=== PATIENT | female | born 1955 | race Caucasian/White ===

== ENCOUNTER → 2022-05-11 11:54 | Outpatient (CLI) | payer MEDICARE, SELFPAY ==
--- NOTE | ~2022-05-11 | MM_ITS ---
EXAMINATION: MM screening [facility] BI w reese HISTORY: Screening TECHNIQUE: Craniocaudal and mediolateral oblique 3-D tomosynthesis images were obtained and synthetic 2-D images were generated. CAD analysis was submitted and interpreted. COMPARISON: Comparison to multiple prior studies sequentially, with oldest reviewed study dated 03/2014. BREAST PARENCHYMAL COMPOSITION: There are scattered areas of fibroglandular density. FINDINGS: There is no evidence of suspicious mass, calcification, or architectural distortion to sugg est malignancy in either breast. There has been no suspicious interval change. IMPRESSION: 1. No mammographic evidence of malignancy. 2. Recommend routine screening mammography in one year. BI-RADS Category 1: Negative Reviewed, dictated and finalized at location A.
== END ==
PROVIDERS: PCP Family Medicine Adolescent Medicine; Visit Provider Family Medicine Adolescent Medicine
DX: Z12.31 Encounter for screening mammogram for malignant neoplasm of breast (principal)
CPT/HCPCS: 77063; 77067

== ENCOUNTER → 2023-05-24 09:45 | Outpatient (CLI) | payer MEDICARE, SELFPAY ==
--- NOTE | ~2023-05-24 | CT_ITS ---
EXAMINATION: CT lung screening DATE: 05/24/2023 09:58 INDICATION: Personal history of nicotine dependence, current smoker with 40 pack year history TECHNIQUE: Computed tomography (CT) of the chest was performed without intravenous contrast. The dose -length product (DLP) was 82.51 mGy-cm. Automated exposure control and iterative reconstruction techn ique were employed. COMPARISON: None FINDINGS: There is moderate emphysema. Calcified pulmonary nodules are consistent with old granulomat ous disease. The heart size is normal. There is a 13 mm nodule at the anteromedial aspect of the righ t upper lobe (image 74). A right lower paratracheal lymph node is upper limits of normal in size. Artemio cified coronary artery atherosclerosis is noted. Punctate calcifications in an otherwise normal splee n likely represent healed granulomatous disease. Schmorl's node is noted in the superior endplate of T10. IMPRESSION: 1. Lung-RADS category 4A: Suspicious. Findings for which additional diagnostic testing is recommended . Recommend three-month low-dose CT or PET/CT. Reviewed, dictated and finalized at location L. IMPRESSION: 1. Lung-RADS category 4A: Suspicious. Findings for which additional diagnostic testing is recommended. Recommend three-month low-dose CT or PET/CT.
== END ==
PROVIDERS: PCP Nurse Practitioner Family; Visit Provider Nurse Practitioner Family
DX: Z12.2 Encounter for screening for malignant neoplasm of respiratory organs (principal); Z87.891 Personal history of nicotine dependence; R92.8 Other abnormal and inconclusive findings on diagnostic imaging of breast
CPT/HCPCS: 71271

== ENCOUNTER 2023-07-05 00:21 | Day surgery (SDC) | payer MEDICARE, SELFPAY ==
[2023-06-23 11:11] VITALS: BMI 25.8
[2023-07-05 06:14] VITALS: BP 146/78; PULSE 79; RESP 16; TEMP 36.4; O2SAT 97; BMI 26.9
[2023-07-05] MEDS: LACTATED RINGERS 1,000 ML 150 ML IV CONT (06:32)
--- NOTE | 2023-07-05 07:16 | WPDANESEPPF ---
Anes - Initial Pre Proc Eval Procedure: Operation Date: 07/05/23 07:30 Proposed Procedures p Colonoscopy - Santy Howard MD Date/Time: 07/05/23 07:16 Surgeon: Santy Howard MD Pre Op Diagnosis: hx of colon polyps Patient Data Age: 67 Gender: F Height: 1.63 m Weight: 71.2 kg Last Vital Signs Temp 97.5 F L 07/05/23 06:14 Pulse 79 07/05/23 06:14 Resp 16 07/05/23 06:14 BP 146/78 H 07/05/23 06:14 Pulse Ox 97 07/05/23 06:14 O2 Del Method Room Air 07/05/23 06:14 Allergies Allergy/AdvReac Type Severity Reaction Status Date / Time bupropion AdvReac Intermediate Irritable Verified 07/05/23 06:20 Home Medications Medication Instructions Recorded Confirmed Type calcium carbonate 600 mg calcium 1,200 mg PO DAILY 05/21/22 07/05/23 History (1,500 mg) tablet diclofenac sodium 75 mg See Rx Instructions .Route 05/21/22 07/05/23 Rx tablet,delayed release .COMPLEX PRN pain #60 tabs pseudoephedrine HCl 30 mg tablet 30 mg PO Q4-6H PRN allergies 05/21/22 07/05/23 History (Wal-phed) zinc acetate 50 mg (zinc) capsule 50 mg PO DAILY 05/21/22 07/05/23 History tobramycin 0.3 %-dexamethasone 0.1 1 drp LEFT EYE QID #5 mL 03/29/23 07/05/23 Rx % eye drops,suspension atorvastatin 40 mg tablet 40 mg PO DAILY #90 tabs 03/30/23 07/05/23 Rx levothyroxine 200 mcg tablet 200 mcg PO QAM #90 tabs 03/30/23 07/05/23 Rx varenicline 1 mg tablet (Chantix 1 mg PO BID #180 tabs 05/25/23 07/05/23 Rx Continuing Month Box) Miralax 17 g PO DAILY 06/23/23 07/05/23 History Patient hx anesthesia problems: none Family hx anesthesia problems: none Results Review: All pre-operative results and documents have been reviewed as part of the pre-operative evaluation. [facility] Past Medical History Medical History Abnormal colonoscopy 03/03 polyp Surgical History Surgical History History of hysterectomy with bilateral oophorectomy Family History Family History Father Cerebrovascular accident Hypertension Acute myocardial infarction Heart disease Sibling Hypertension Colon polyp Diabetes mellitus Sibling Carcinoma of colon Mother Breast cancer Social History Social History (Updated 03/30/23 @ 16:37 by Luz Maria Bonilla APRN) Smoking packs per day: 1 Smoking cigarettes per day: 20.0 Years smoked: 40 Smoking pack-years: 40.00 Smoking status: Current every day smoker Tobacco type: cigarettes Second hand tobacco smoke exposure: Yes Alcohol intake: never Substance use: never Substance use type: does not use Living arrangements: with family Occupation/Education: occupation Gender identity (if verbalized by the patient): Female Spiritual care concerns: No Agree to blood products: Yes Anes - Eval Final PreProcedure Day of Procedure 07/05/23 07:16 Patient weight: normal Heart: regular rate and rhythm Lungs: clear to auscultation Airway: Mallampati scale class II Neurological: alert and oriented Last oral intake: >/= 8 hours ASA classification: II Emergent: no Anesthetic plan: proceed Anesthesia type and monitoring: general GIVS and standard monitoring Results Review: All pre-operative results and documents have been reviewed as part of the pre-operative evaluation. Informed Consent: The patient's anesthetic plan and its attendant risks and benefits were discussed with the patient/family/POA. Questions were solicited and answers provided to the satisfaction of the patient/family/POA.
--- NOTE | 2023-07-05 07:25 | PM.HPGS ---
History of Present Illness History of Present Illness Consent: Risks, benefits, and alternatives have been discussed and questions answered. Patient agrees to proceed with procedure. Chief complaint: hx of colon polyps Narrative: Harriet Onofre is a 67 year old female Presents for screening colonoscopy. Patient's current weight appetite and bowel movements are normal. Patient denies abdominal pain. She has had no bleeding. Family history noncontributory. Previous colonoscopy 2014 revealed a benign adenomatous colon polyp. Review of Systems Review of Systems: Review of systems noncontributory. [facility] Past Medical History Medical History Abnormal colonoscopy 03/03 polyp Surgical History Surgical History History of hysterectomy with bilateral oophorectomy Family History Family History Father Cerebrovascular accident Hypertension Acute myocardial infarction Heart disease Sibling Hypertension Colon polyp Diabetes mellitus Sibling Carcinoma of colon Mother Breast cancer Social History Social History (Updated 03/30/23 @ 16:37 by Luz Maria Bonilla APRN) Smoking packs per day: 1 Smoking cigarettes per day: 20.0 Years smoked: 40 Smoking pack-years: 40.00 Smoking status: Current every day smoker Tobacco type: cigarettes Second hand tobacco smoke exposure: Yes Alcohol intake: never Substance use: never Substance use type: does not use Living arrangements: with family Occupation/Education: occupation Gender identity (if verbalized by the patient): Female Spiritual care concerns: No Agree to blood products: Yes Meds Home Medications and Allergies Home Medications Medication Instructions Recorded Confirmed Type calcium carbonate 600 mg calcium 1,200 mg PO DAILY 05/21/22 07/05/23 History (1,500 mg) tablet diclofenac sodium 75 mg See Rx Instructions .Route 05/21/22 07/05/23 Rx tablet,delayed release .COMPLEX PRN pain #60 tabs pseudoephedrine HCl 30 mg tablet 30 mg PO Q4-6H PRN allergies 05/21/22 07/05/23 History (Wal-phed) zinc acetate 50 mg (zinc) capsule 50 mg PO DAILY 05/21/22 07/05/23 History tobramycin 0.3 %-dexamethasone 0.1 1 drp LEFT EYE QID #5 mL 03/29/23 07/05/23 Rx % eye drops,suspension atorvastatin 40 mg tablet 40 mg PO DAILY #90 tabs 03/30/23 07/05/23 Rx levothyroxine 200 mcg tablet 200 mcg PO QAM #90 tabs 03/30/23 07/05/23 Rx varenicline 1 mg tablet (Chantix 1 mg PO BID #180 tabs 05/25/23 07/05/23 Rx Continuing Month Box) Miralax 17 g PO DAILY 06/23/23 07/05/23 History Allergies Allergy/AdvReac Type Severity Reaction Status Date / Time bupropion AdvReac Intermediate Irritable Verified 07/05/23 06:20 Vital Signs Vital Signs - 24 hr 07/05/23 06:14 Temperature 97.5 F L Pulse Rate 79 Respiratory Rate 16 Blood Pressure 146/78 H Pulse Oximetry 97 Oxygen Delivery Room Air Exam Narrative: Physical exam reveals patient to be alert. Vital signs stable. HEENT exam is unremarkable. Patient is anicteric. Lungs are clear to auscultation and percussion. Heart is without murmur or extra sounds. Abdomen bowel sounds are present soft nontender with no organomegaly. Digital external rectal exam is normal. Assessment and Plan Assessment and plan (1) Hx of colonic polyps: Code(s): Z86.010 - Personal history of colonic polyps Status: Acute Assessment and Plan: Patient has a history of colon polyps. Plan for surveillance colonoscopy now. further recommendations may be given after endoscopy..
[2023-07-05 08:04] VITALS: BP 118/56; PULSE 79; RESP 20; O2SAT 97
[2023-07-05 08:14] VITALS: BP 131/74; PULSE 76; RESP 20; O2SAT 97
[2023-07-05 08:24] VITALS: BP 155/76; PULSE 69; RESP 20; O2SAT 100
== END 2023-07-05 08:35 | disposition home or self-care (01) ==
PROVIDERS: PCP Nurse Practitioner Family; Visit Provider Internal Medicine Gastroenterology
PROC: 0DJD8ZZ Inspection of Lower Intestinal Tract, Via Natural or Artificial Opening Endoscopic (ICD-10-PCS; CPT 45378; principal; 2023-07-05 07:30)
DX: Z12.11 Encounter for screening for malignant neoplasm of colon (principal); D12.2 Benign neoplasm of ascending colon; K63.5 Polyp of colon; K57.30 Diverticulosis of large intestine without perforation or abscess without bleeding; K64.8 Other hemorrhoids; F17.210 Nicotine dependence, cigarettes, uncomplicated
CPT/HCPCS: 45385; 88305; J2704; J7120

== ENCOUNTER 2023-08-24 08:03 | Outpatient (CLI) | payer MEDICARE, SELFPAY ==
--- NOTE | ~2023-08-24 | CT_ITS ---
CT Scan of the Chest without Contrast: Clinical Indication: Solitary pulmonary nodule Technique: Contiguous sections were acquired throughout the chest without intravenous contrast. Dose reduction technique was used on this scan by utilizing automated exposure control and iterative recon struction technique. The dose-length product (DLP) was 90.44 mGy-cm. COMPARISON: 05/24/2023 Findings: There is no evidence of any significant mediastinal, hilar or axillary lymphadenopathy. The mediastin al soft tissues appear normal. There is no evidence of pleural or pericardial effusion. Moderate emphysema present. Calcified right upper lobe granuloma noted (axial image 52). Stable 1.4 c m noncalcified nodule at the anteromedial right upper lobe ((axial image 78). Several additional calc ified granulomas are present. Images through the upper abdomen reveal no abnormalities. Impression: Stable 1.4 cm noncalcified nodule at the anteromedial right upper lobe. Stability is relatively reass uring sign, however given the short interval, continued follow-up at a minimum is recommended. PET/CT or tissue sampling could be considered for additional workup. Moderate emphysema. Reviewed, dictated and finalized at [facility]. WINDER TENDER Impression: Stable 1.4 cm noncalcified nodule at the anteromedial right upper lobe. Stabili ty is relatively reassuring sign, however given the short interval, continued f ollow-up at a minimum is recommended. PET/CT or tissue sampling could be consid ered for additional workup. Moderate emphysema.
== END 2023-08-24 08:04 ==
LOC: MICIMG 08:05
PROVIDERS: PCP Nurse Practitioner Family; Visit Provider Nurse Practitioner Family
DX: R91.1 Solitary pulmonary nodule (principal); J43.9 Emphysema, unspecified
CPT/HCPCS: 71250

== ENCOUNTER 2023-09-21 07:21 | Outpatient (CLI) | payer MEDICARE, SELFPAY ==
--- NOTE | ~2023-09-21 | PE_ITS ---
EXAMINATION: PET skull to mid thigh DATE: 09/21/2023 09:23 INDICATION: Solitary pulmonary nodule TECHNIQUE: Blood glucose level was 86 mg/dL. 8.1 mCi of 18-fluorodeoxyglucose (18-FDG) was administer ed i.v. Low dose computed tomography (CT) images were acquired from the base of the brain to the prox imal thighs for attenuation correction and anatomic localization. Positron emission tomography (PET) images were acquired in the same distribution beginning 60 minutes after injection. Images including fused PET/CT images were reconstructed in axial, coronal, and sagittal planes. Automated exposure con trol technique was employed. The dose-length product was 686.91mGy-cm. COMPARISON: CT dated 05/24/2023 and 08/24/2023 FINDINGS: Head/neck: There is symmetric increased activity in the oral cavity, submandibular glands, laryngeal muscles and ocular muscles without CT correlate, likely physiologic. There is some additional asymmetric but lik simone physiologic muscular activity at the left scalene muscle which without radiologic correlate. No p athologically enlarged cervical lymphadenopathy or suspicious foci of increased FDG uptake in the vis ualized head or neck. Chest: Mild emphysema. No evident FDG uptake associated with the 1.4 cm nodule in the anteromedial right upp er lobe. There are few small bilateral calcified pulmonary nodules and calcified paraesophageal lymph node consistent with old granulomatous disease. No other suspicious pulmonary nodules, pneumonia, pu lmonary edema or pleural effusion. Heart size is normal. Small amount of atherosclerotic coronary art royal calcific location. Aortic valve calcific lesion. No pericardial effusion. No pathologically enlar ged or FDG avid thoracic lymphadenopathy. Abdomen/pelvis/proximal thighs: Physiologic renal accumulation and excretion of FDG activity in the kidneys, bladder and along portio ns of ureters. Normal degree and heterogenous pattern of increased uptake throughout the liver withou t radiologic correlate or dominant FDG avid lesion. A few small splenic calcific lesions consistent w ith old granulomatous disease. The gallbladder, pancreas and bilateral adrenal glands are normal. Mil d uptake scattered throughout the bowels without radiologic correlate, also likely physiologic. Jeanne l appendix. No other abnormal foci of increased FDG uptake or pathologically enlarged lymphadenopathy in the abdomen, pelvis or proximal thighs. Musculoskeletal: Moderate cervical and mild to moderate thoracic and lumbar spondylosis. Schmorl's node and chronic paez perior endplate compression fracture at T10. Relatively symmetric mild uptake about the bilateral gre ater trochanters consistent with trochanteric bursitis. No suspicious lytic, blastic or FDG avid bone lesions. IMPRESSION: 1. No FDG uptake associated with a 1.4 cm right upper lobe pulmonary nodule. While reassuring would r ecommend continued radiographic follow-up with low-dose noncontrast chest CT in 6 months. No other FD G avid lesions suspicious for either primary malignancy or metastatic disease. Reviewed, dictated and finalized at location A. DENTIAL ROOFER IMPRESSION: 1. No FDG uptake associated with a 1.4 cm right upper lobe pulmonary nodule. Wh ile reassuring would recommend continued radiographic follow-up with low-dose n oncontrast chest CT in 6 months. No other FDG avid lesions suspicious for eithe r primary malignancy or metastatic disease.
[2023-09-21 07:44] LABS: Glucose Point of Care 86 mg/dl (65-105)
== END 2023-09-21 07:22 | disposition home or self-care (01) ==
PROVIDERS: PCP Nurse Practitioner Family; Visit Provider Nurse Practitioner Family
DX: R91.1 Solitary pulmonary nodule (principal)
CPT/HCPCS: 78815; A9552

== ENCOUNTER → 2023-09-30 12:10 | Outpatient (CLI) | payer MEDICARE, SELFPAY ==
--- NOTE | ~2023-09-30 | MM_ITS ---
EXAMINATION: MM screening [facility] BI w reese HISTORY: Screening mammogram, family history of breast cancer in her mother. TECHNIQUE: Craniocaudal and mediolateral oblique 3-D tomosynthesis images were obtained and synthetic 2-D images were generated. CAD analysis was submitted and interpreted. COMPARISON: No prior mammogram is available for comparison at this institution. BREAST PARENCHYMAL COMPOSITION: There are scattered areas of fibroglandular density. FINDINGS: No suspicious mass, calcification, or architectural distortion are identified in either leia ast to suggest malignancy. There has been no suspicious interval change. IMPRESSION: 1. No mammographic evidence of malignancy. 2. Recommend routine screening mammography in one year. BI-RADS Category 1: Negative Reviewed, dictated and finalized at location A. ET AND BUILDING DECORATOR
--- NOTE | ~2023-09-30 | DEXA_ITS ---
Bone Density Report Name: ORVILLE CAMILO Age: 68 Sex: Female Ethnicity: White Date of : 1955 Indication: postmenopausal osteoporosis; height loss; hysterectomy; Referring Provider: REAGAN TAMAYO Study: Bone densitometry was performed. Exam Date: September 30, 2023 Accession number: [id number] Bone Density: Region BMD T-score Z-score Classification AP Spine (L1-L4) 0.734 -2.8 -0.9 Osteoporosis Femoral Neck (Left) 0.578 -2.4 -0.8 Osteopenia Total Hip (Left) 0.713 -1.9 -0.5 Osteopenia Femoral Neck (Right) 0.620 -2.1 -0.4 Osteopenia Total Hip (Right) 0.726 -1.8 -0.4 Osteopenia Total Hip Mean 0.720 -1.9 -0.5 Osteopenia World Health Organization criteria for BMD impression classify patients as: Normal (T-score at or above -1.0), Osteopenia (T-score between -1.0 and -2.5), or Osteoporosis (T-score at or below -2.5). 10-year Fracture Risk: FRAX not reported because: Some T-score for Spine Total or Hip Total or Femoral Neck at or below -2.5 Previous Exams: Region Exam Age BMD T-score BMD Change BMD Change Date g/cm2 vs Baseline vs Previous AP Spine(L1-L4) 09/30/2023 68 0.734 -2.8 -0.006 -0.006 01/31/2015 59 0.740 -2.8 Total Hip(Left) 09/30/2023 68 0.713 -1.9 -0.078* -0.078* 01/31/2015 59 0.792 -1.2 Total Hip(Right) 09/30/2023 68 0.726 -1.8 -0.052* -0.052* 01/31/2015 59 0.778 -1.3 *Denotes significance at 95% confidence level, LSC for AP Spine = 0.022 g/cm2, LSC for Total Hip = 0.027 g/cm2 Clinical Information Provided by Patient: Smokes Has used the following medications: Vitamin D, Calcium Has the following medical conditions: Hysterectomy Patient maximum height was 64.5 Menopause Age: 37 Drinks caffeinated beverages Onset of menses at age 16 Number of children 3 Impression: The patient has osteoporosis, based on the Total Spine T-score. The patient has risk factors, including: smoking. The BMD for the Total Hip(Left) decreased, changing by -0.078 since the last DXA exam. The BMD for the Total Hip(Right) decreased, changing by -0.052 since the last DXA exam. Discussion: INCREASED RISK OF FRACTURE. BONE DENSITY IS UNDESIRABLY LOW AT ONE OR MORE SKELETAL SITES, CONSISTENT WITH POSTMENOPAUSAL OSTEOPOROSIS. This patient's lowest T-score meets the World Health Organization's (WHO) criteria for osteoporosis at one or more sites (T-score -2.5 or below). In untreated patients, th
== END ==
PROVIDERS: PCP Nurse Practitioner Family; Visit Provider Nurse Practitioner Family
DX: Z12.31 Encounter for screening mammogram for malignant neoplasm of breast (principal); M81.0 Age-related osteoporosis without current pathological fracture; Z13.820 Encounter for screening for osteoporosis
CPT/HCPCS: 77063; 77067; 77080

== ENCOUNTER 2024-04-03 14:11 | Outpatient (CLI) | payer MEDICARE, SELFPAY ==
--- NOTE | ~2024-04-03 | CT_ITS ---
CT Scan of the Chest without Contrast: Clinical Indication: Pulmonary nodule Technique: Contiguous sections were acquired throughout the chest without intravenous contrast. Dose reduction technique was used on this scan by utilizing automated exposure control and iterative recon struction technique. The dose-length product (DLP) was 76.18 mGy-cm. COMPARISON: 08/24/2023 Findings: There is no evidence of any significant mediastinal, hilar or axillary lymphadenopathy. The mediastin al soft tissues appear normal. There is no evidence of pleural or pericardial effusion. There is moderate emphysema. Several calcified granulomas are noted. There is a new 6 mm left upper l obe pulmonary nodule (axial image 34). There is a 1.5 cm noncalcified nodule in the anteromedial righ t upper lobe (axial image 73). Images through the upper abdomen reveal no abnormalities. Stable T10 compression deformity versus Gio morl's node. Impression: 1.5 cm noncalcified nodule at the anteromedial right upper lobe may be minimally increased from prior exam. Continued follow-up advised at a minimum. 6 mm left upper lobe pulmonary nodule, new from prior exam. This could also be reassessed at follow-u p CT. Underlying moderate emphysema. Reviewed, dictated and finalized at [facility]. Impression: 1.5 cm noncalcified nodule at the anteromedial right upper lobe may be minimall y increased from prior exam. Continued follow-up advised at a minimum. 6 mm left upper lobe pulmonary nodule, new from prior exam. This could also be reassessed at follow-up CT. Underlying moderate emphysema.
== END 2024-04-03 14:12 ==
LOC: MICIMG 14:12
PROVIDERS: PCP Family Medicine Adolescent Medicine; Visit Provider Nurse Practitioner Family
DX: R91.8 Other nonspecific abnormal finding of lung field (principal); J43.9 Emphysema, unspecified
CPT/HCPCS: 71250

== ENCOUNTER 2024-06-13 15:27 | Outpatient (CLI) | payer MEDICARE, SELFPAY ==
--- NOTE | ~2024-06-13 | XR_ITS ---
EXAMINATION: XR chest 2V Exam Date/Time: 06/13/2024 15:29 CDT HISTORY: R05.3 - Chronic cough Comparison: 06/20/2010; CT chest 04/03/2024. RESULT: Lines, tubes, and devices: None. Lungs and pleura: Mild emphysematous change. Approximately 1.5 cm anteromedial right upper lobe pulm onary nodule. Scattered stable calcified granulomas. Cardiomediastinal silhouette: Stable. Other: No acute osseous or upper abdominal finding. IMPRESSION: No acute cardiopulmonary process. The 1.5 cm anteromedial right upper lobe pulmonary nodule is less well visualized radiographically, a nd the previously described new left upper lobe nodule was not seen. Prior recommendation for close C T follow-up unchanged. Also consider PET/CT or biopsy for further evaluation. Reviewed, dictated and finalized at location K. IMPRESSION: No acute cardiopulmonary process. The 1.5 cm anteromedial right upper lobe pulmonary nodule is less well visualiz ed radiographically, and the previously described new left upper lobe nodule wa s not seen. Prior recommendation for close CT follow-up unchanged. Also conside r PET/CT or biopsy for further evaluation.
== END 2024-06-13 15:28 | disposition home or self-care (01) ==
LOC: MICIMG 15:28
PROVIDERS: PCP Nurse Practitioner Family; Visit Provider Nurse Practitioner Family
DX: R91.1 Solitary pulmonary nodule (principal); R05.3 Chronic cough
CPT/HCPCS: 71046

== ENCOUNTER 2024-09-27 11:48 | Outpatient (CLI) | payer MEDICARE, SELFPAY ==
--- NOTE | ~2024-09-27 | CT_ITS ---
EXAMINATION:CT diagnostic chest wo con DATE: 09/27/2024 12:08 INDICATION: Solitary pulmonary nodule. TECHNIQUE: Computed tomography (CT) of the chest was performed without intravenous contrast. Automate d exposure control and iterative reconstruction technique were employed. The dose-length product (DLP ) was 61.04 mGy-cm. COMPARISON: Chest CT 04/03/2024, 05/24/23 FINDINGS: There is mild emphysema. Calcified bilateral lung nodules and calcified right hilar lymph n odes are consistent with old granulomatous disease. There is a 14 mm pleural-based nodule in right mi ddle lobe, stable from 05/24/2023. No pleural effusion. The heart size is normal. There are coronary ar alvarez calcifications. No pericardial effusion. Calcifications in the spleen are consistent with old gr anulomatous disease. There is moderate thoracic spondylosis. There is a chronic compression fracture of T10. IMPRESSION: 1. 14 mm pulmonary nodule, stable from 05/24/2023, likely benign. Noncontrast low-dose chest CT is miguel mmended in one year. 2. Mild emphysema. Reviewed, dictated and finalized at location A. FIC ROUTING ENGINEER IMPRESSION: 1. 14 mm pulmonary nodule, stable from 05/24/2023, likely benign. Noncontrast low -dose chest CT is recommended in one year. 2. Mild emphysema.
== END 2024-09-27 11:49 | disposition home or self-care (01) ==
LOC: MICIMG 11:50
PROVIDERS: PCP Family Medicine Adolescent Medicine; Visit Provider Nurse Practitioner Family
DX: R91.1 Solitary pulmonary nodule (principal); J43.9 Emphysema, unspecified
CPT/HCPCS: 71250

== ENCOUNTER 2024-10-22 13:23 | Outpatient (CLI) | payer MEDICARE, SELFPAY ==
--- NOTE | ~2024-10-22 | XR_ITS ---
EXAM: XR foot LT 2V DATE: 10/22/2024 13:33 HISTORY: M79.672 - Pain in left foot . COMPARISON: None available. FINDINGS: Decreased mineralization. Oblique, possibly nondisplaced fracture of the left fifth proxim al phalanx, not well seen in the lateral view due to summation artifact. No lytic or blastic lesion. Mild degenerative change at the first MTP joint. Achilles and plantar enthesopathy. No erosion or per iosteal change. Soft tissues within normal limits. IMPRESSION: Oblique, possibly nondisplaced fracture of the left fifth proximal phalanx (fifth digit m ostly obscured in the lateral view). Osteopenia. Mild scattered degenerative changes Reviewed, dictated and finalized at location K. AURANT MANAGER IMPRESSION: Oblique, possibly nondisplaced fracture of the left fifth proximal phalanx (fifth digit mostly obscured in the lateral view). Osteopenia. Mild sca ttered degenerative changes
== END 2024-10-22 13:24 | disposition home or self-care (01) ==
LOC: MICIMG 13:23
PROVIDERS: PCP Family Medicine Adolescent Medicine; Visit Provider Nurse Practitioner Family
DX: M85.872 Other specified disorders of bone density and structure, left ankle and foot (principal)
CPT/HCPCS: 73620

== ENCOUNTER 2024-12-07 11:20 | Outpatient (CLI) | payer MEDICARE, SELFPAY ==
--- NOTE | ~2024-12-07 | MM_ITS ---
EXAMINATION: MM screening elayne BI w reese HISTORY: Screening TECHNIQUE: Craniocaudal and mediolateral oblique 3-D tomosynthesis images were obtained and synthetic 2-D images were generated. CAD analysis was submitted and interpreted. COMPARISON: Comparison to multiple prior studies sequentially, with oldest reviewed study dated 09/30. BREAST PARENCHYMAL COMPOSITION: Not dense: There are scattered areas of fibroglandular density. FINDINGS: There is no evidence of suspicious mass, calcification, or architectural distortion to sugg est malignancy in either breast. There has been no suspicious interval change. IMPRESSION: 1. No mammographic evidence of malignancy. 2. Recommend routine screening mammography in one year. BI-RADS Category 1: Negative Reviewed, dictated and finalized at location B.
== END 2024-12-07 11:21 | disposition home or self-care (01) ==
LOC: MICIMG 11:21
PROVIDERS: PCP Family Medicine Adolescent Medicine; Visit Provider Family Medicine Adolescent Medicine
DX: Z12.31 Encounter for screening mammogram for malignant neoplasm of breast (principal)
CPT/HCPCS: 77063; 77067

== ENCOUNTER 2025-07-02 09:27 | Outpatient (CLI) | payer MEDICARE, SELFPAY ==
--- NOTE | ~2025-07-02 | CT_ITS ---
EXAMINATION:CT lung screening DATE: 07/02/2025 09:49 INDICATION: Personal history of nicotine dependence. TECHNIQUE: Computed tomography (CT) of the chest was performed without intravenous contrast. Automated exposure control and iterative reconstruction technique were employed. The dose-length product (DLP) was 67.29 mGy-cm. COMPARISON: Chest CT 09/27/24, 05/24/23 FINDINGS: There is mild emphysema. Calcified pulmonary nodules and calcified hilar and mediastinal lymph nodes are consistent with old granulomatous disease. There is a 14 mm nodule in right middle lobe, stable from 05/24/2023. There is mild atelectasis bilaterally. No pleural effusion. The heart size is normal. There are coronary artery calcifications. No pericardial effusion. There is a small sliding hiatal hernia. There is mild thoracic spondylosis. There is a chronic compression fracture of T10 vertebral body. There are compression fractures of T11 and L1 vertebral bodies, new from 09/27/2024, likely acute or subacute. IMPRESSION: 1. Lung-RADS category 2: Benign appearance or behavior. Continue annual screening with noncontrast low-dose chest CT in 12 months. Reviewed, dictated and finalized at location [facility]. IMPRESSION: 1. Lung-RADS category 2: Benign appearance or behavior. Continue annual screeni ng with noncontrast low-dose chest CT in 12 months.
== END 2025-07-02 09:28 | disposition home or self-care (01) ==
PROVIDERS: PCP Nurse Practitioner Family; Visit Provider Nurse Practitioner Family
DX: Z12.2 Encounter for screening for malignant neoplasm of respiratory organs (principal); Z87.891 Personal history of nicotine dependence
CPT/HCPCS: 71271